=== PATIENT | female | born 1980 | race Caucasian/White ===

== ENCOUNTER 2017-12-03 12:45 | Emergency (ER) | payer SELFPAY ==
[2017-12-03] MEDS ORDERED: Ondansetron ODT 4 MG TAB ONE (13:00)
[2017-12-03] MEDS ORDERED: Acetaminophen 500 MG TAB ONE (13:00)
--- NOTE | 2017-12-03 13:59 | CT ---
CT BRAIN WITHOUT CONTRAST: HISTORY: Headache. COMPARISON: CT brain from 09/03/2014. FINDINGS: No acute territorial infarct or hemorrhage. No midline shift or mass effect. Ventricular size and e xtraaxial CSF spaces are normal. The calvarium is intact. There is extensive sphenoid sinusitis and mucosal thickening, as well as left paranasal sinus thickening. IMPRESSION: 1. No acute intracranial abnormality. 2. Moderate paranasal sinusitis. POS: [facility]
== END 2017-12-03 13:40 | disposition home or self-care (01) ==
LOC: SCSER 12:45
DX: J01.90 Acute sinusitis, unspecified (principal); I34.1 Nonrheumatic mitral (valve) prolapse; F31.9 Bipolar disorder, unspecified; F41.9 Anxiety disorder, unspecified; F17.210 Nicotine dependence, cigarettes, uncomplicated
CPT/HCPCS: 70450; Q0162

== ENCOUNTER 2018-09-27 20:14 | Emergency (ER) | payer SELFPAY ==
[2018-09-27 20:35] LABS: Bilirubin Negative (Negative); Blood, Urine Negative (Negative); Clarity Cloudy (Clear); Glucose, Urine (Dipstick) Negative (Negative); Leukocyte Negative (Negative); Nitrite Negative (Negative); Protein, Urine (Dipstick) Negative (Neg-Trace); Urobilinogen 0.2 mg/dL (0.2-1.0); pH, Urine 6.5 (5.0-9.0)
[2018-09-27 20:37] LABS: Pregnancy Test - Urine (BHCG) Negative (Negative); Pregu Control Background? CLEAR/WHITE (CLR/WHITE); Pregu Control Bar Appear? YES (CONTROL BAR)
[2018-09-27] MEDS ORDERED: Morphine 4 MG/ML VIAL ONE (21:08)
[2018-09-27] MEDS ORDERED: Promethazine HCl 25 MG/ML VIAL ONE (21:08)
--- NOTE | 2018-09-27 22:24 | ULT ---
PELVIC ULTRASOUND WITH ORTIZ SCALE AND DOPPLER COLOR FLOW IMAGIN09/27/18 Transabdominal and transvaginal pelvic ultrasound performed. CLINICAL HISTORY: Pelvic pain. FINDINGS: Doppler evaluation reveals flow to each ovary. There are cysts of the left ovary, the dominant of whi ch measures 2.8 cm in diameter. No significant abnormality of the right ovary. Mild free pelvic fluid is nonspecific. There is mild thickening of the endometrium at 12 mm. IMPRESSION: 1. Cyst formation of the left ovary, the dominant of which measures 2.8 cm. Subtle internal echo es of this cyst may relate to reverberation artifact or mild complexity. As a conservative measure si x week followup pelvic ultrasound is recommended. 2. Mild prominence of the endometrium may be physiologic if the patient is premenopausal. This m ay be reassessed at time of short term followup. 3. Small volume free pelvic fluid. POS: [facility]
[2018-10-01 19:14] LABS: Chlamydia by PCR Not Detected (NotDetected); GC by PCR Not Detected (NotDetected)
== END 2018-09-27 22:41 | disposition home or self-care (01) ==
LOC: SCSER 20:14
DX: N83.202 Unspecified ovarian cyst, left side (principal); R93.89 Abnormal findings on diagnostic imaging of other specified body structures; I34.1 Nonrheumatic mitral (valve) prolapse; F17.210 Nicotine dependence, cigarettes, uncomplicated; Z71.6 Tobacco abuse counseling
CPT/HCPCS: 76856; 81003; 81025; 82274; 87480; 87491; 87510; 87591; 87660; 93976; 96374; 96375; 99406; J2270; J2550

== ENCOUNTER 2018-11-17 00:33 | Emergency (ER) | payer SELFPAY ==
[2018-11-17 01:01] LABS: #Basophils 0.2 thou/uL (0.0-0.2); #Eosinphils 0.3 thou/uL (0.0-0.7); #Lymphocytes 5.7 thou/uL (1.20-3.40); #Monocytes 0.8 thou/uL (0.11-0.59); #Neutrophils 7.9 thou/uL (1.40-6.50); %Basophils 1.1 % (0.0-1.0); %Eosinophils 1.7 % (0.0-10.0); %Lymphocytes 38.8 % (21.0-51.0); %Monocytes 5.2 % (0.0-10.0); %Neutrophils 53.2 % (42.0-75.0); Hemoglobin 14.1 g/dL (12.0-16.0); Mean Corpuscular HGB CONC 34.8 g/dL (32.0-36.0); Mean Corpuscular Hemoglobin 30.6 pg (27.0-31.0); Mean Corpuscular Volume 88.1 fL (78.0-98.0); Mean Platelet Volume 6.7 fL (7.4-10.4); Platelet Count 363 thou/uL (130-400); RBC Distribution Width 11.4 % (11.5-14.5); Red Blood Cell (RBC) Count 4.59 mill/uL (4.20-5.40); White Blood Cell (WBC) Count 14.8 thou/uL (4.8-10.8)
[2018-11-17] MEDS ORDERED: Metoclopramide HCl 10 MG/2 ML VIAL ONE (01:12)
[2018-11-17] MEDS ORDERED: diphenhydrAMINE 50 MG/ML VIAL ONE (01:12)
[2018-11-17] MEDS ORDERED: Morphine 4 MG/ML VIAL ONE (01:12)
[2018-11-17 01:14] LABS: ALT (SGPT) 13 U/L (8-55); AST (SGOT) 11 U/L (5-34); Albumin 4.3 g/dL (3.5-5.0); Alkaline Phosphatase 51 U/L (40-150); Anion Gap 15 mmol/L (10-20); BUN (Urea Nitrogen) 13 mg/dL (7.0-18.7); Bilirubin, Total 0.1 mg/dL (0.2-1.2); Calc. Creatinine Clearance 0 mL/min (70-130); Calcium 9.4 mg/dL (7.8-10.44); Carbon Dioxide 21 mmol/L (22-29); Chloride 107 mmol/L (98-107); Estimated GFR-MDRD Greater than 90; Globulin 2.5 g/dL (2.4-3.5); Glucose 94 mg/dL (70-105); Potassium 3.9 mmol/L (3.5-5.1); Protein, Total 6.8 g/dL (6.0-8.3); Sodium 139 mmol/L (136-145)
[2018-11-17 01:51] LABS: BHCG - Serum Negative (NEGATIVE); Pregs Control Background? CLEAR/WHITE (CLR/WHITE); Pregs Control Bar Appear? YES (CONTROL BAR)
[2018-11-17] MEDS ORDERED: Aspirin Chewable 81 MG TAB ONE (02:28)
[2018-11-17] MEDS ORDERED: Lidocaine Viscous Sol 2% 15 ml UD Cup ONE (03:49)
[2018-11-17] MEDS ORDERED: Mag-Al Plus 1200 MG/1200 MG/120 MG/30 ML UDCUP ONE (03:49)
[2018-11-17 04:21] LABS: Troponin I Less than 0.010 ng/mL (< 0.028)
--- NOTE | 2018-11-17 05:56 | RAD ---
CHEST ONE VIEW: INDICATIONS: Chest pain. COMPARISON: Prior exam dated 02/21/2015. IMPRESSION: The lungs are clear. The heart size is normal. No pleural effusion or pneumothorax is evident. No acute osseous abnormality is evident. POS: [facility]
--- NOTE | 2018-11-17 08:32 | CT ---
PRELIMINARY REPORT/[facility]/EMERGENT[facility] AFTER-HOURS PROCEDURE CT Angiography Head Without And With Contrast EXAM DATE/TIME: 11/17/2018 1:11 AM CLINICAL HISTORY: 38 years old, female; Pain; Headache; Patient HX: Patient presents for evaluation of chest pain, ongo ing. Historian history provided by patient. Location symptoms are localized, most severe in the left upper chest, pain radiates, radiation to the arm, radiation to the neck, left side of neck and arm. TECHNIQUE: Axial computed tomographic angiography images of the head without and with intravenous contrast using CT angiography protocol. Coronal and sagittal reformatted images were created and reviewed. MIP reconstructed images were created and reviewed. CONTRAST: Contrast Material: 85 ml of [id number]; Contrast Route: IV COMPARISON: No relevant prior studies available. FINDINGS: Right internal carotid artery: Unremarkable. Intracranial segment is patent with no significant steno sis. No aneurysm. Right anterior cerebral artery: Unremarkable. No occlusion or significant stenosis. No aneurysm. Right middle cerebral artery: Unremarkable. No occlusion or significant stenosis. No aneurysm. Right posterior cerebral artery: Unremarkable. No occlusion or significant stenosis. No aneurysm. Right vertebral artery: Unremarkable. No occlusion or significant stenosis. No aneurysm. Left internal carotid artery: Unremarkable. Intracranial segment is patent with no significant stenos is. No aneurysm. Left anterior cerebral artery: Unremarkable. No occlusion or significant stenosis. No aneurysm. Left middle cerebral artery: Unremarkable. No occlusion or significant stenosis. No aneurysm. Left posterior cerebral artery: Unremarkable. No occlusion or significant stenosis. No aneurysm. Left vertebral artery: Unremarkable. No occlusion or significant stenosis. No aneurysm. Basilar artery: Unremarkable. No occlusion or significant stenosis. No aneurysm. Other vasculature: Small apparent superior outpouching of contrast in the vicinity of the anterior co mmunicating artery on sagittal reconstructions appears to be volume averaging on axial and created MP R images. HEAD: Brain: Unremarkable. No hemorrhage. No significant white matter disease. No edema. Ventricles: Normal. No ventriculomegaly. Bones/joints: Unremarkable. No acute fracture. Sinuses: Left maxillary sinus mucosal thickening and small air-fluid level. Mastoid air cells: Visualized mastoids are normal. No mastoid effusion. Soft tissues: Unremarkable. IMPRESSION: 1. No acute intracranial findings. Left maxillary sinusitis. 2. Suspected volume averaging artifact rather than small aneurysm in the vicinity of the anterior com municating artery. Thank you for allowing us to participate in the care of your patient. Dictated and Authenticated by: Khanh Choi MD 11/17/2018 2:55 AM Central Time ([place] & [place]) FINAL REPORT CTA HEAD WITH AND WITHOUT CONTRAST UTILIZING IV CONTRAST AND 3D REFORMATTED IMAGING: INDICATIONS: History of a 38-year-old female with a headache. IMPRESSION: I agree with the preliminary report provided. No acute intracranial abnormality is evident. There i s mucosal thickening and an air-fluid level in the left maxillary sinus, suspicious for acute left ma xillary sinusitis. There is a small, projected outpouching seen along the superior margin and near t he expected region of the anterior communicating artery, on the sagittal images only, that is not def initely confirmed on the coronal or axial imaging and may be related to volume averaging of the MIP p rojections due a slight bending of the proximal aspect of the right communicating and left anterior c erebral arteries. No definite hemodynamically significant stenosis, occlusion, or aneurysmal formati on is evident. If the patient's symptoms do persist, a follow-up MRA of the head may be helpful. POS: [facility]
--- NOTE | 2018-11-17 08:34 | CT ---
PRELIMINARY REPORT/[facility]/EMERGENTY AFTER-HOURS PROCEDURE CT Angiography Neck With Contrast EXAM DATE/TIME: 11/17/2018 1:11 AM CLINICAL HISTORY: 38 years old, female; Pain; Headache; Patient HX: Patient presents for evaluation of chest pain, ongo ing. Historian history provided by patient. Location symptoms are localized, most severe in the left upper chest, pain radiates, radiation to the arm, radiation to the neck, left side of neck and arm. TECHNIQUE: Axial computed tomographic angiography images of the neck with intravenous contrast using CT angiogra phy protocol. Coronal and sagittal reformatted images were created and reviewed. MIP reconstructed images were created and reviewed. CONTRAST: Contrast Material: 85 ml of [id number]; Contrast Route: iv COMPARISON: No relevant prior studies available. FINDINGS: VASCULATURE: Right common carotid artery: No significant stenosis. No dissection or occlusion. Right internal carotid artery: Extracranial segment is patent with no significant stenosis. No dissec tion or occlusion. Right external carotid artery: No occlusion or significant stenosis. Right vertebral artery: No significant stenosis. No dissection or occlusion. Left common carotid artery: No significant stenosis. No dissection or occlusion. Left internal carotid artery: Extracranial segment is patent with no significant stenosis. No dissect ion or occlusion. Left external carotid artery: No occlusion or significant stenosis. Left vertebral artery: No significant stenosis. No dissection or occlusion. NECK: Thyroid: Couple of subcentimeter thyroid nodules. Bones/joints: No acute fracture. Soft tissues: Unremarkable. IMPRESSION: No acute findings. COMMENT: Reference per NASCET criteria for degree of stenosis: Mild: less than 50% stenosis. Moderate: 50-69% stenosis. Severe: 70-94% stenosis. Near occlusion: 95-99% stenosis. Thank you for allowing us to participate in the care of your patient. Dictated and Authenticated by: Khanh Choi MD 11/17/2018 3:03 AM Central Time ([place] & [place]) FINAL REPORT CTA NECK WITH AND WITHOUT CONTRAST UTILIZING 3D REFORMATTED IMAGING: IMPRESSION: 1. I agree with the preliminary report provided. No definite hemodynamically significant stenosis, occlusion, or aneurysmal formation is demonstrated. 2. Multiple small, subcentimeter hypodensities within the thyroid gland. POS: [facility]
== END 2018-11-17 05:10 | disposition home or self-care (01) ==
LOC: SCSER 00:33
DX: R07.89 Other chest pain (principal); R51 Headache; I34.1 Nonrheumatic mitral (valve) prolapse; F17.210 Nicotine dependence, cigarettes, uncomplicated
CPT/HCPCS: 70496; 70498; 71045; 80053; 84484; 84703; 85025; 93005; 96361; 96365; 96375; J1200; J2270; J2765

== ENCOUNTER 2018-12-02 20:59 | Emergency (ER) | payer BC ==
[2018-12-02] MEDS ORDERED: Ibuprofen 800 MG TAB ONE (21:33)
== END 2018-12-02 21:44 | disposition home or self-care (01) ==
LOC: SCSER 20:59
DX: M54.5 Low back pain (principal); F17.210 Nicotine dependence, cigarettes, uncomplicated
CPT/HCPCS: 99281

== ENCOUNTER 2021-02-17 01:03 | Emergency (ER) | payer SELFPAY ==
[2021-02-17] MEDS ORDERED: Ondansetron PF 4 MG/2 ML Vial ONE (01:23)
[2021-02-17] MEDS ORDERED: Morphine 4 MG/ML VIAL ONE (01:23)
[2021-02-17] MEDS ORDERED: diphenhydrAMINE 50 MG/ML VIAL ONE (01:30)
[2021-02-17 01:53] LABS: BHCG - Serum Negative (NEGATIVE); Pregs Control Background? CLEAR/WHITE (CLR/WHITE); Pregs Control Bar Appear? YES (CONTROL BAR)
[2021-02-17 02:09] LABS: ALT (SGPT) 13 U/L (8-55); AST (SGOT) 10 U/L (5-34); Albumin 3.5 g/dL (3.5-5.0); Alkaline Phosphatase 54 U/L (40-110); Anion Gap 10 mmol/L (10-20); BUN (Urea Nitrogen) 12 mg/dL (7.0-18.7); Bilirubin, Total 0.2 mg/dL (0.2-1.2); Calc. Creatinine Clearance 0 mL/min (70-130); Calcium 8.4 mg/dL (7.8-10.44); Carbon Dioxide 22 mmol/L (22-29); Chloride 109 mmol/L (98-107); Globulin 2.4 g/dL (2.4-3.5); Glucose 109 mg/dL (70-105); Lipase 18 U/L (8-78); Potassium 3.2 mmol/L (3.5-5.1); Protein, Total 5.9 g/dL (6.0-8.3); Sodium 138 mmol/L (136-145)
[2021-02-17 02:14] LABS: Hemoglobin 12.9 g/dL (12.0-16.0); Mean Corpuscular Hemoglobin 31.9 pg (27.0-31.0); Mean Corpuscular Volume 91.1 fL (78.0-98.0); Mean Platelet Volume 6.9 fL (7.4-10.4); Platelet Count 336 thou/uL (130-400); RBC Distribution Width 11.5 % (11.5-14.5); Red Blood Cell (RBC) Count 4.05 mill/uL (4.20-5.40); White Blood Cell (WBC) Count 18.8 thou/uL (4.8-10.8)
[2021-02-17 02:30] LABS: Eosinophils 1 % (0-10); Lymphocytes 35 % (21-51); MDiff Complete? YES; Monocytes 4 % (0-10); Neutrophil 60 % (42-75); Platelet Morphology Comment Appears Adequate
[2021-02-17 03:45] LABS: Bacteria/HPF 2+ HPF (None Seen); Bilirubin Negative (Negative); Blood, Urine Negative (Negative); Clarity Clear (Clear); Glucose, Urine (Dipstick) Normal (Negative); Ketone, Urine Negative (Negative); Leukocyte 25 Leu/uL (Negative); Nitrite 2+ (Negative); Protein, Urine (Dipstick) Negative (Neg-Trace); RBC/HPF 0-3 HPF (0-3); Urobilinogen Normal mg/dL (Less than 2); pH, Urine 6.5 (5.0-9.0)
[2021-02-17 03:47] LABS: Specific Gravity, Urine 1.055 (1.002-1.036)
== END 2021-02-17 04:07 | disposition home or self-care (01) ==
LOC: ERS 01:03
DX: N39.0 Urinary tract infection, site not specified (principal); F17.210 Nicotine dependence, cigarettes, uncomplicated
CPT/HCPCS: 36415; 74177; 80053; 81003; 81015; 83690; 84703; 85025; 87077; 87086; 87186; 93005; 96374; 96375; J1200; J2270; J2405

== ENCOUNTER 2021-03-29 13:33 | Emergency (ER) | payer SELFPAY ==
[~2021-03-29 13:33] MED LIST: Iopamidol-370 76% 500 ML 1 ML ONE
[2021-03-29 14:35] LABS: Hemoglobin 14.5 g/dL (12.0-16.0); Mean Corpuscular HGB CONC 34.5 g/dL (32.0-36.0); Mean Corpuscular Hemoglobin 31.5 pg (27.0-31.0); Mean Corpuscular Volume 91.2 fL (78.0-98.0); Mean Platelet Volume 6.7 fL (7.4-10.4); Platelet Count 399 thou/uL (130-400); RBC Distribution Width 11.8 % (11.5-14.5); Red Blood Cell (RBC) Count 4.62 mill/uL (4.20-5.40)
[2021-03-29 14:39] LABS: Bacteria/HPF 2+ HPF (None Seen); Bilirubin Negative (Negative); Blood, Urine Trace (Negative); Clarity Clear (Clear); Glucose, Urine (Dipstick) Normal (Negative); Ketone, Urine Negative (Negative); Leukocyte Negative Leu/uL (Negative); Nitrite Negative (Negative); Protein, Urine (Dipstick) Negative (Neg-Trace); RBC/HPF 0-3 HPF (0-3); Specific Gravity, Urine 1.014 (1.002-1.036); Squamous Epithelial 0-3 HPF (0-3); Urobilinogen Normal mg/dL (Less than 2); WBC/HPF 0-3 HPF (0-3)
[2021-03-29 14:40] LABS: Pregnancy Test - Urine (BHCG) Negative (Negative); Pregu Control Background? CLEAR/WHITE (CLR/WHITE); Pregu Control Bar Appear? YES (CONTROL BAR); Specific Gravity 1.014 (1.002-1.036)
[2021-03-29 14:49] LABS: ALT (SGPT) 79 U/L (8-55); AST (SGOT) 45 U/L (5-34); Albumin 4.3 g/dL (3.5-5.0); Alkaline Phosphatase 71 U/L (40-110); Anion Gap 15 mmol/L (10-20); BUN (Urea Nitrogen) 12 mg/dL (7.0-18.7); Bilirubin, Total 0.3 mg/dL (0.2-1.2); Calc. Creatinine Clearance 0 mL/min (70-130); Calcium 9.6 mg/dL (7.8-10.44); Carbon Dioxide 21 mmol/L (22-29); Chloride 103 mmol/L (98-107); Glucose 103 mg/dL (70-105); Lipase 11 U/L (8-78); Potassium 4.1 mmol/L (3.5-5.1); Protein, Total 7.3 g/dL (6.0-8.3); Sodium 135 mmol/L (136-145)
[2021-03-29 14:56] LABS: Band 9 % (5-11); Lymphocytes 9 % (21-51); MDiff Complete? YES; Monocytes 8 % (0-10); Neutrophil 67 % (42-75); Platelet Morphology Comment Appears Adequate; Polychromasia SLIGHT = 2-3 cells (100X) (0-2/hpf); Reactive Lymphocytes 7 % (0-10)
[2021-03-29] MEDS ORDERED: Ondansetron PF 4 MG/2 ML Vial ONE (15:15)
[2021-03-29] MEDS ORDERED: Morphine 4 MG/ML VIAL ONE (15:15)
== END 2021-03-29 16:39 | disposition home or self-care (01) ==
LOC: ERS 13:33
DX: K92.1 Melena (principal); F17.210 Nicotine dependence, cigarettes, uncomplicated
CPT/HCPCS: 36415; 74177; 80053; 81003; 81015; 81025; 83690; 85025; 96374; 96375; J2270; J2405; Q9967

== ENCOUNTER 2021-03-29 21:52 | Emergency (ER) | payer SELFPAY ==
[2021-03-29] MEDS ORDERED: Ondansetron PF 4 MG/2 ML Vial ONE (23:08)
[2021-03-29] MEDS ORDERED: Morphine 4 MG/ML VIAL ONE (23:08)
[2021-03-29 23:17] LABS: #Basophils 0.1 thou/uL (0.0-0.2); #Eosinphils 0.3 thou/uL (0.0-0.7); #Lymphocytes 4.4 thou/uL (1.20-3.40); #Monocytes 1.1 thou/uL (0.11-0.59); #Neutrophils 14.5 thou/uL (1.40-6.50); %Basophils 0.5 % (0.0-1.0); %Eosinophils 1.5 % (0.0-10.0); %Lymphocytes 21.5 % (21.0-51.0); %Monocytes 5.5 % (0.0-10.0); %Neutrophils 71.1 % (42.0-75.0); Hemoglobin 13.4 g/dL (12.0-16.0); Mean Corpuscular HGB CONC 33.7 g/dL (32.0-36.0); Mean Corpuscular Hemoglobin 31.2 pg (27.0-31.0); Mean Corpuscular Volume 92.7 fL (78.0-98.0); Mean Platelet Volume 7.1 fL (7.4-10.4); Platelet Count 378 thou/uL (130-400); RBC Distribution Width 11.8 % (11.5-14.5); Red Blood Cell (RBC) Count 4.29 mill/uL (4.20-5.40); White Blood Cell (WBC) Count 20.5 thou/uL (4.8-10.8)
[2021-03-29 23:24] LABS: ALT (SGPT) 83 U/L (8-55); AST (SGOT) 46 U/L (5-34); Albumin 3.9 g/dL (3.5-5.0); Alkaline Phosphatase 68 U/L (40-110); Anion Gap 16 mmol/L (10-20); BUN (Urea Nitrogen) 12 mg/dL (7.0-18.7); Bilirubin, Total 0.3 mg/dL (0.2-1.2); Calc. Creatinine Clearance 0 mL/min (70-130); Calcium 8.8 mg/dL (7.8-10.44); Carbon Dioxide 22 mmol/L (22-29); Chloride 104 mmol/L (98-107); Globulin 2.7 g/dL (2.4-3.5); Glucose 125 mg/dL (70-105); Lipase 13 U/L (8-78); Potassium 3.8 mmol/L (3.5-5.1); Protein, Total 6.6 g/dL (6.0-8.3); Sodium 138 mmol/L (136-145)
[2021-03-30 00:18] LABS: Bacteria/HPF None Seen HPF (None Seen); Bilirubin Negative (Negative); Blood, Urine Trace (Negative); Clarity Clear (Clear); Glucose, Urine (Dipstick) Normal (Negative); Ketone, Urine Negative (Negative); Leukocyte 25 Leu/uL (Negative); Nitrite 2+ (Negative); Protein, Urine (Dipstick) 10 mg/dL (Neg-Trace); Urobilinogen Normal mg/dL (Less than 2)
[2021-03-30 00:24] LABS: Specific Gravity, Urine 1.051 (1.002-1.036)
== END 2021-03-30 01:24 | disposition home or self-care (01) ==
LOC: ERS 21:52
DX: K92.1 Melena (principal); F17.210 Nicotine dependence, cigarettes, uncomplicated
CPT/HCPCS: 81003; 83690; 96374; 96375; J2270; J2405

== ENCOUNTER 2021-07-10 08:35 | Emergency (ER) | payer SELFPAY ==
[2021-07-10 10:01] LABS: #Basophils 0.1 thou/uL (0.0-0.2); #Eosinphils 0.1 thou/uL (0.0-0.7); #Lymphocytes 2.9 thou/uL (1.20-3.40); #Monocytes 0.7 thou/uL (0.11-0.59); #Neutrophils 8.1 thou/uL (1.40-6.50); %Basophils 0.4 % (0.0-1.0); %Eosinophils 1.1 % (0.0-10.0); %Lymphocytes 24.5 % (21.0-51.0); %Monocytes 5.6 % (0.0-10.0); %Neutrophils 68.4 % (42.0-75.0); Hemoglobin 13.2 g/dL (12.0-16.0); Mean Corpuscular HGB CONC 33.4 g/dL (32.0-36.0); Mean Corpuscular Hemoglobin 30.6 pg (27.0-31.0); Mean Corpuscular Volume 91.8 fL (78.0-98.0); Mean Platelet Volume 6.9 fL (7.4-10.4); Platelet Count 381 thou/uL (130-400); RBC Distribution Width 11.8 % (11.5-14.5); Red Blood Cell (RBC) Count 4.29 mill/uL (4.20-5.40); White Blood Cell (WBC) Count 11.8 thou/uL (4.8-10.8)
[2021-07-10] MEDS ORDERED: Ondansetron PF 4 MG/2 ML Vial ONE (10:02)
[2021-07-10 10:06] LABS: BHCG - Serum Negative (NEGATIVE); Pregs Control Background? CLEAR/WHITE (CLR/WHITE); Pregs Control Bar Appear? YES (CONTROL BAR)
[2021-07-10 10:14] LABS: ALT (SGPT) 15 U/L (8-55); AST (SGOT) 12 U/L (5-34); Alkaline Phosphatase 55 U/L (40-110); Anion Gap 10 mmol/L (10-20); BUN (Urea Nitrogen) 9 mg/dL (7.0-18.7); Bilirubin, Total 0.3 mg/dL (0.2-1.2); Calc. Creatinine Clearance 0 mL/min (70-130); Calcium 9.2 mg/dL (7.8-10.44); Carbon Dioxide 27 mmol/L (22-29); Chloride 107 mmol/L (98-107); Globulin 2.3 g/dL (2.4-3.5); Glucose 120 mg/dL (70-105); Lipase 16 U/L (8-78); Potassium 3.8 mmol/L (3.5-5.1); Protein, Total 6.3 g/dL (6.0-8.3); Sodium 140 mmol/L (136-145)
== END 2021-07-10 11:29 | disposition home or self-care (01) ==
LOC: ERS 08:35
DX: R10.31 Right lower quadrant pain (principal); R11.2 Nausea with vomiting, unspecified; F17.210 Nicotine dependence, cigarettes, uncomplicated
CPT/HCPCS: 80053; 83690; 84703; 85025; 96374; J2405

== ENCOUNTER 2021-08-03 18:09 | Emergency (ER) | payer OTHER ==
[2021-08-03 18:38] LABS: #Eosinphils 0.1 thou/uL (0.0-0.7); #Lymphocytes 3.1 thou/uL (1.20-3.40); #Neutrophils 12.3 thou/uL (1.40-6.50); %Basophils 0.3 % (0.0-1.0); %Eosinophils 0.4 % (0.0-10.0); %Lymphocytes 18.7 % (21.0-51.0); %Monocytes 6.2 % (0.0-10.0); %Neutrophils 74.5 % (42.0-75.0); Hemoglobin 13.5 g/dL (12.0-16.0); Mean Corpuscular Hemoglobin 31.4 pg (27.0-31.0); Mean Corpuscular Volume 92.3 fL (78.0-98.0); Mean Platelet Volume 6.7 fL (7.4-10.4); Platelet Count 407 thou/uL (130-400); RBC Distribution Width 11.7 % (11.5-14.5); Red Blood Cell (RBC) Count 4.29 mill/uL (4.20-5.40); White Blood Cell (WBC) Count 16.5 thou/uL (4.8-10.8)
[2021-08-03] MEDS ORDERED: Morphine 4 MG/ML VIAL ONE (18:39)
[2021-08-03] MEDS ORDERED: Ondansetron PF 4 MG/2 ML Vial ONE (18:39)
[2021-08-03 18:52] LABS: BHCG - Serum Negative (NEGATIVE); Pregs Control Background? CLEAR/WHITE (CLR/WHITE); Pregs Control Bar Appear? YES (CONTROL BAR)
[2021-08-03 19:00] LABS: ALT (SGPT) 19 U/L (8-55); AST (SGOT) 15 U/L (5-34); Albumin 4.2 g/dL (3.5-5.0); Alkaline Phosphatase 66 U/L (40-110); Anion Gap 12 mmol/L (10-20); BUN (Urea Nitrogen) 11 mg/dL (7.0-18.7); Bilirubin, Total 0.3 mg/dL (0.2-1.2); Calc. Creatinine Clearance 0 mL/min (70-130); Calcium 9.5 mg/dL (7.8-10.44); Carbon Dioxide 26 mmol/L (22-29); Chloride 105 mmol/L (98-107); Globulin 2.7 g/dL (2.4-3.5); Glucose 96 mg/dL (70-105); Lipase 13 U/L (8-78); Potassium 3.9 mmol/L (3.5-5.1); Protein, Total 6.9 g/dL (6.0-8.3); Sodium 139 mmol/L (136-145)
[2021-08-03 19:42] LABS: Bacteria/HPF 1+ HPF (None Seen); Bilirubin Negative (Negative); Blood, Urine Trace (Negative); Clarity Turbid (Clear); Glucose, Urine (Dipstick) Normal (Negative); Ketone, Urine Negative (Negative); Leukocyte 25 Leu/uL (Negative); Nitrite 2+ (Negative); Protein, Urine (Dipstick) 20 mg/dL (Neg-Trace); RBC/HPF 0-3 HPF (0-3); Specific Gravity, Urine 1.021 (1.002-1.036); Urobilinogen Normal mg/dL (Less than 2)
== END 2021-08-03 20:00 | disposition home or self-care (01) ==
LOC: ERS 18:09
DX: N39.0 Urinary tract infection, site not specified (principal); F17.210 Nicotine dependence, cigarettes, uncomplicated; I38 Endocarditis, valve unspecified
CPT/HCPCS: 80053; 81003; 81015; 83690; 84703; 85025; 87077; 87086; 87186; 96374; 96375; J2270; J2405

== ENCOUNTER 2022-04-02 21:27 | Emergency (ER) | payer SELFPAY ==
[2022-04-02] MEDS ORDERED: Ondansetron ODT 8 MG TAB ONE (21:54)
[2022-04-02] MEDS ORDERED: HYDROcodone/Acetaminophen 10/325 mg Tablet ONE (21:54)
== END 2022-04-02 22:19 | disposition home or self-care (01) ==
LOC: ERS 21:27
DX: T63.461A Toxic effect of venom of wasps, accidental (unintentional), initial encounter (principal); F17.210 Nicotine dependence, cigarettes, uncomplicated
CPT/HCPCS: 99282; Q0162